=== PATIENT | female | born 1965 | race Caucasian/White ===

== ENCOUNTER 2016-10-16 12:19 | Emergency (ER) | payer MEDICAID ==
[~2016-10-16] VITALS: Ht 152.4 cm; Wt 75.6 kg
[2016-10-16 14:34] LABS: BLOOD UREA NITROGEN 11 mg/dL (7-18)
[2016-10-16 14:37] LABS: ASPARTATE AMINO TRANSFERASE 18 U/L (15-37)
[2016-10-16 15:00] VITALS: BP 124/84
== END 2016-10-16 15:32 | disposition home or self-care (01) ==
LOC: ED 14:22
DX: M25.562 Pain in left knee (principal); G89.18 Other acute postprocedural pain
CPT/HCPCS: 36415; 80053; 85025; 85610; 85730; 99285

== ENCOUNTER 2019-03-20 11:17 | Emergency (ER) | payer MEDICAID ==
[~2019-03-20] VITALS: Ht 149.9 cm; Wt 65.0 kg
[2019-03-20 11:37] VITALS: BP 158/96
[2019-03-20] MEDS ORDERED: KETOROLAC 30 MG/1 ML IM ONE (12:00)
[2019-03-20] MEDS ORDERED: METHOCARBAMOL 750 MG TABLET PO ONE (12:00)
[2019-03-20] MEDS ORDERED: KETOROLAC 30 MG/1 ML ONE (12:54)
== END 2019-03-20 13:25 ==
LOC: ED 13:19
DX: S16.1XXA Strain of muscle, fascia and tendon at neck level, initial encounter (principal); M47.892 Other spondylosis, cervical region; X58.XXXA Exposure to other specified factors, initial encounter; Y93.89 Activity, other specified; Y92.89 Other specified places as the place of occurrence of the external cause; Y99.8 Other external cause status
CPT/HCPCS: 72125; 96372; 99284; J1885